=== PATIENT | male | born 1975 | race Caucasian/White ===

== ENCOUNTER 2020-08-10 12:03 | Outpatient (CLI) | payer OTHER, SELFPAY ==
--- NOTE | ~2020-08-10 | XR_ITS ---
XR lumbar spine min 4V 08/10/2020 12:32 Indication: Low back pain. Sciatica. Procedure: 5 views lumbar spine Comparison: No prior studies for comparison. Findings: There is mild disc narrowing at L4-5 and L5-S1. Vertebral body heights are maintained. No f racture or traumatic malalignment. No evidence for spondylolisthesis. Pedicles intact. Impression: 1: Mild lumbar spondylosis. Reviewed, dictated and finalized at location B. WARE ENGINEER DEVELOPER Impression: 1: Mild lumbar spondylosis.
== END 2020-08-10 12:04 | disposition home or self-care (01) ==
PROVIDERS: PCP Family Medicine; Visit Provider Family Medicine
DX: M54.42 Lumbago with sciatica, left side (principal)
CPT/HCPCS: 72110

== ENCOUNTER 2020-08-14 07:41 | Outpatient (RCR) | payer OTHER, SELFPAY ==
--- NOTE | 2020-08-14 08:02 | PTOPEVAL ---
Thank you for referring Nadir Jauregui to [facility] [place].? The patient is scheduled to be seen for therapy? ____x/week for ___ weeks. Please review, sign, date and return this plan of care ENDER. I agree with and certify that the following plan of care is medically necessary. Referring Physician Date Admitting Provider: Attending Provider: Larry Panchal MD Referring Provider: *PT Outpatient Evaluation Start: 08/14/20 07:09 Freq: Status: Active Protocol: Document 08/14/20 07:10 [facility] (Rec: 08/14/20 08:00 [facility] [email or web address]) Therapy Assessment Status Assessment Status Assessment Status Evaluation Evaluation Information Problem Diagnosis lumbago with L side sciatica Onset 07/27/20 Additional Evaluation Detail oswestry = 28% functionally declined Subjective Information patient reports he injured his Query Text:As Reported By Patient/ back about 2 weeks. he Family reports he is unsure of any specific injury. he reports he is having pain in the lower back and mostly down the L LE through the butt and into the back of the L LE. he reports he did have one incident during hunting where he slid out of his hunting stand. he reports after this there was no pain in the lower back. he reports he then got vocid and was in bed for about 10 days with bad symptoms. he reports after this, he began having pain in the buttock. he reports he has less pain with sitting, but the transition from standing to sitting is severly painful. he reports after a day of getting into and out of his truck causes him to feel like he is dragging his leg at the end of the day. Prior Level of Function Comments Additional Prior Level of Function prior to a few weeks ago, no Comments issues with the back or pain down the legs. he repors he is an avid freddy. he reports he works for [employer]. he reports he is on the road nearly every day.
--- NOTE | 2020-09-14 08:05 | PTOPEVAL ---
Thank you for referring Nadir Jauregui to [facility].? The patient is scheduled to be seen for therapy? ____x/week for ___ weeks. Please review, sign, date and return this plan of care ENDER. I agree with and certify that the following plan of care is medically necessary. Referring Physician Date Admitting Provider: Attending Provider: Larry Panchal MD Referring Provider: *PT Outpatient Evaluation Start: 08/14/20 07:09 Freq: Status: Active Protocol: Document 09/14/20 07:03 [facility] (Rec: 09/14/20 08:04 [facility] [id number]) Therapy Assessment Status Assessment Status Assessment Status Discharge Pain Assessment Timing of Pain Assessment Timing of Pain Assessment Assessment Pain Scale Pain Scale Used Numeric (1 - 10) Self Report Pain Assessment Left Buttock(s) Reported Pain Level 5 Lowest Pain Intensity 0 Greatest Pain Intensity 8 Pain Score Pain Score 5: Self Report Interventions Used Interventions Used By Clinicians Activity or ADL's,Electrical Stimulation,Exercise,Heat Cervical and Lumbar ROM Lumbar ROM Lumbar Flexion Active Ankle Query Text:Hands to: Lumbar Extension (0-40) 30 Query Text:Active in Degrees Lumbar Lateral Flexion Right (0-40) 40 Query Text:Active in Degrees Lumbar Lateral Flexion Left (0-40) 40 Query Text:Active in Degrees Lumbar Comments Patient reports pain with all lumbar movements Lower Extremity Muscle Strength Testing Hip Strength Bilateral Hip Flexion Strength 5 Normal Hip Extension Strength 5 Normal Hip Abduction Strength 5 Normal Knee Strength Bilateral Knee Flexion Strength 5 Normal Knee Extension Strength 5 Normal Ankle Strength Bilateral Ankle Dorsiflexion Strength 5 Normal Ankle Plantarflexion Strength 5 Normal Posture Posture Standing Position Additional Posture Comments Patient continues to present with decreased lumbar lordosis Special Test-Spine Lumbar Spine Special Tests Crossed Straight Leg Raise Test Negative Right,Negative Left Straight Leg Raise Test Negative Right,Negative Left Slump Test Negative Right,Positive Left General Exercise General Exercises Exercise Description - hamstring and piriformis Query Text:Record Sets, Reps, stretch x 3 minutes B Resistance, and Position - swimmers x 2 minutes - bugs x 2 minutes - seated hamstring stretch x 1 minute x 3 - education on trunk stabilization exercises and
== END 2020-09-11 09:18 | disposition home or self-care (01) ==
LOC: CHSPT 07:41
PROVIDERS: PCP Family Medicine; Visit Provider Family Medicine
DX: M54.42 Lumbago with sciatica, left side (principal)
CPT/HCPCS: 97012; 97014; 97110; 97140; 97161; G0283

== ENCOUNTER 2023-10-17 08:30 | Outpatient (CLI) | payer OTHER, SELFPAY ==
--- NOTE | ~2023-10-17 | XR_ITS ---
PA, oblique, and lateral views of left fifth finger CLINICAL HISTORY: Injury FINDINGS: No acute fracture or dislocation seen. Joint spaces are preserved. Soft tissues are unremar kable. IMPRESSION: No significant abnormality seen. Reviewed, dictated and finalized at location .
== END 2023-10-17 08:31 | disposition home or self-care (01) ==
LOC: CHSIMG 08:34
PROVIDERS: PCP Family Medicine
DX: S69.92XA Unspecified injury of left wrist, hand and finger(s), initial encounter (principal)
CPT/HCPCS: 73140

== ENCOUNTER 2025-05-12 11:40 | Outpatient (CLI) | payer OTHER, SELFPAY ==
--- NOTE | ~2025-05-12 | XR_ITS ---
EXAMINATION: XR shoulder RT min 2V, 05/12/2025 11:40 RN REGISTRY HISTORY: Pain in R Shoulder COMPARISON: No comparisons available. Findings: No acute fracture or malalignment. No significant degenerative changes. Soft tissues unremarkable. Impression: No acute fracture or malalignment. Reviewed, dictated and finalized at location P. REGISTRY Impression: No acute fracture or malalignment.
--- OUTSIDE RECORDS SUMMARY | 2025-05-12 12:22 | XMS_ITS | Clinical Summary ---
Author Organization [facility] Address [address] [place] [address] Care Team Providers Care Coater Operator Name Role Phone Larry Panchal MD Primary Care Provider [phone] Source Comments [facility],non-owned Affiliates and Associated Physician Practices is amultiple site organization consisting of ambulatory clinics and hospital sitesin [place], [place], [place] and [place]. This disclosure is being madepursuant to the Care Everywhere program and may not contain all information available regarding this patient. Last updated 18.[facility] Allergies No known active allergies Medications * Be aware that medications may not be up to date on this document. Alwaysverify current medications with the patient. 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 Gender Identity Not on file Sexual Orientation Not on file Plan of Treatment Health Maintenance Due Date Last Done Comments COLOGUARD (AGES 45-75) - COL ON CA SCREENING 1977 COLON MONITORING 1977 COLONOSCOPY - COLON CA SCREENING 1977 CT COLONOGRAPHY - COLON CA SCREENING 1977 Colorectal Cancer Screening 1977 FIT - COLON CA SCREENING 1977 FLEX SIG - COLON CA SCREENING 1977 HIV SCREENING 1992 HEPATITIS C SCREENING 10/14/1995 DTAP/TDAP/TD VACCINES (1 - Tdap) 1996 HEPATITIS B VACCINE (1 of 3 - 19+ 3-dose series) 1996 DEPRESSION SCREENING 07/03/2024 COVID-19 VACCINE (1 - 2023-2 5 season) 2025 INFLUENZA VACCINE (#1) 2025 ZOSTER VACCINE (1 of 2) 10/19/2027 HIB VACCINE Aged Out No longer eligi ble based on patient's age to complete this topic HPV VACCINE Aged Out No longer eligi ble based on patient's age to complete this topic MENINGOCOCCAL (Group B) VACC INE SHARED DECISION-MAKING Aged Out No longer eligibl e based on patient's age to complete this topic MENINGOCOCCAL GROUPS A/C/Y/W VACCINE Aged Out No longer eligible b ased on patient's age to complete this topic PNEUMOCOCCAL VACCINE Aged Out No long er eligible based on patient's age to complete this topic Insurance * Guarantor: Nadir Vital Account Type Relation to Patient Date of Phone Billing Address Personal/Family Self [address] [place] [id number] [facility] Member Subscriber Plan / Payer (Ef fective 2013-Present) Name:Nadir Vital Relation to Subscriber:Self Name:NADIR VITAL Payer ID:[id number] (NAIC) Type:Commercial Address: [place] [id number] [place] [id number] Care Teams Coater Operator Relationship Specialty Start Date End Date Larry Panchal MD [address] [place] [address] PCP - General 06/28/18
== END 2025-05-12 11:41 | disposition home or self-care (01) ==
LOC: CHSIMG 11:42
PROVIDERS: PCP Family Medicine; Visit Provider Family Medicine
DX: M25.511 Pain in right shoulder (principal)
CPT/HCPCS: 73030